=== PATIENT | male | born 2000 | race Caucasian/White ===

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

== ENCOUNTER 2024-12-01 04:58 | Emergency (ER) | payer OTHER ==
[~2024-12-01] VITALS: Ht 177.8 cm; Wt 75.0 kg
--- OUTSIDE RECORDS SUMMARY | 2024-12-01 05:05 | XMS ---
PreManage Notification: LUZ MARINA OTERO [employer] Events No recent Security Events currently on file CRITERIA MET - [facility] - 2 Visits in 30 Days CARE PROVIDERS [facility] Clinic/Center: [facility] Current FAMILY PHONE: [phone] Phyllis has no Care Guidelines for this patient. ERemigio VISIT COUNT (12 MO.) [address] TOTAL 3 NOTE: Visits indicate total known visits. ED/C VISIT TRACKING (12 MO.) 12/01/2024 04:59 [facility] [place] TYPE: Emergency COMPLAINT: - POST OP PROBLEM 11/20/2024 10:46 [facility] [place] TYPE: Emergency COMPLAINT: - LT ARM INJURY 11/18/2024 21:30 [facility] [place] TYPE: Emergency DIAGNOSES: - Colles' fracture of left radius, initial encounter for closed fracture - Displaced fracture of left ulna styloid process, initial encounter for closed fracture - Unspecified injury of head, initial encounter - Head Injury - left wrist injury - Wrist Injury INPATIENT VISIT TRACKING (12 MO.) No inpatient visits to display in this time frame [id number]
[2024-12-01] MEDS ORDERED: OXYCODONE HCL5 MG PO (05:12)
[2024-12-01] MEDS ORDERED: HYDROmorphone HCL 1 MG/ML SYR IM ONE (05:15)
[2024-12-01] MEDS ORDERED: KETOROLAC TROMETHAMINE 60 MG/2 ML VIAL IM ONE (05:15)
[2024-12-01] MEDS ORDERED: DILAUDID2 MG PO (05:28)
[2024-12-01] MEDS ORDERED: COLACE100 MG PO (05:29)
[2024-12-01] MEDS ORDERED: HYDROmorphone HCL 2 MG HOME.PACK PO ONE (05:30)
[2024-12-01] MEDS ORDERED: GABAPENTIN 300 MG CAP PO ONE (05:45)
[2024-12-01] MEDS ORDERED: GABAPENTIN300 MG PO (05:45)
[2024-12-01 06:07] VITALS: BP 148/93
== END 2024-12-01 06:00 | disposition home or self-care (01) ==
LOC: ED 04:58
DX: G89.18 Other acute postprocedural pain (principal)
CPT/HCPCS: 96372; 99282; A9270; J1171; J1885